=== PATIENT | male | born 1945 | race Two or more races ===

== ENCOUNTER 2018-07-12 11:37 | Outpatient (CLI) | payer OTHER ==
[~2018-07-12 11:37] MED LIST: AMBIEN10 MG PO; Colace 100MG PO; PERCOCET 5/321 UDTAB PO
== END 2018-07-12 17:00 | disposition home or self-care (01) ==
LOC: MRI 11:37
DX: M54.2 Cervicalgia (principal); M54.02 Panniculitis affecting regions of neck and back, cervical region
CPT/HCPCS: 72141

== ENCOUNTER → 2018-12-29 | Outpatient (CLI) | payer OTHER | END | disposition home or self-care (01) | LOC: MAMO-SONO 07:45 → SONOGRAMA 11:20 | DX: R10.31 Right lower quadrant pain (principal) ==

== ENCOUNTER 2024-11-13 15:23 | Outpatient (CLI) | payer OTHER | END 2024-11-13 15:27 | disposition home or self-care (01) | LOC: RAD 15:23 | PROVIDERS: ATTEND General Practice | DX: I11.9 Hypertensive heart disease without heart failure (principal) ==

== ENCOUNTER 2025-05-21 14:03 | Outpatient (CLI) | payer OTHER | END 2025-05-21 14:10 | disposition home or self-care (01) | LOC: TOM 14:03 | PROVIDERS: ATTEND General Practice | DX: R41.81 Age-related cognitive decline (principal) ==